=== PATIENT | female | born 1980 | race American Indian/Alaskan Native ===

== ENCOUNTER → 2018-03-01 09:10 | Outpatient (CLI) | payer MEDICAID, SELFPAY ==
--- NOTE | 2018-03-01 | DI.US.S_ITS ---
PROCEDURE: US THYROID INDICATIONS: 37 year-old female with dysphagia. TECHNIQUE: Real-time scanning was performed of the thyroid gland, with image documentation. COMPARISON: None. FINDINGS: Right: Thyroid lobe measures 4.6 x 1.5 mg 6 cm, and is homogeneous in echotexture. Left: Thyroid lobe measures 3.3 x 1.0 x 1.3 cm, and is homogenous in echotexture. Isthmus: 3.0 mm thick. Nodule number: 1. Location: Right mid thyroid lobe Size: 0.6 x 0.3 x 0.3 cm. Composition: Solid Echogenicity: Hyperechoic Shape: Poor than wide. Margins: Ill-defined Echogenic foci: Macro calcification with posterior shadowing. Total points: 9 ACR TI-RADS category 5: Highly suspicious IMPRESSION: Solitary irregular 6 mm calcified right thyroid nodule demonstrates highly suspicious morphology by ultrasound criteria. ACR TI-RADS 5: annual thyroid ultrasound is warranted every year for up to 5 years, as described below. ACR TI-RADS definitions and recommendations: TI-RADS 1 (benign): 0 points. FNA not needed. TI-RADS 2 (not suspicious): 2 points. FNA not needed. TI-RADS 3 (mildly suspicious): 3 points. * FNA if 2.5 cm or larger, follow up if 1.5 cm or larger (at 1, 3, and 5 years). TI-RADS 4 (moderately suspicious): 4-6 points. * FNA if 1.5 cm or larger, follow up if 1 cm or larger (at 1, 2, 3, and 5 years). TI-RADS 5 (highly suspicious): 7 points or more. * FNA if 1 cm or larger, follow up if 0.5 cm or larger (every year for 5 years). Dictated by: Stas DAVIDSON Interpreted: Dimitris Lozada MD on 03/01/2018 at 10:50 Approved by: Noman Walter M.D. on 03/04/2018 at 10:10
[2018-03-01 11:38] LABS: Free T3, Triiodothyronine Free 3.41 pg/mL (2.77-5.27); Free T4, Direct Thyroxine 0.73 ng/dL (0.78-2.19)
[2018-03-01 11:51] LABS: Thyroid Stimulating Hormone 1.58 uIU/mL (0.47-4.68)
[2018-03-03 22:12] LABS: Urea Breath Test >18YRS Not Detected
== END ==
PROVIDERS: Family Provider Family Medicine; PCP Family Medicine; Visit Provider Family Medicine
DX: R13.10 Dysphagia, unspecified (principal); E04.9 Nontoxic goiter, unspecified; K21.9 Gastro-esophageal reflux disease without esophagitis; E04.1 Nontoxic single thyroid nodule
CPT/HCPCS: 36415; 76536; 83013; 84439; 84443; 84481

== ENCOUNTER 2018-06-20 15:47 | Emergency (ER) | payer MEDICAID, SELFPAY ==
[2018-06-20 15:49] VITALS: BP 123/86; PULSE 107; RESP 20; TEMP 36.1; O2SAT 99; BMI 28.8
--- NOTE | 2018-06-20 16:05 | ED.ALLEREA ---
HPI - Allergic Reaction <KATRINA Nick - Last Filed: 06/20/18 22:09> General Chief complaint: Allergic Reaction Stated complaint: THINKS ALLERGIC REACTION TO TORDAL Time Seen by Provider: 06/20/18 16:01 Source: patient Mode of arrival: ambulatory Limitations: no limitations History of Present Illness HPI narrative: 37-year-old female with history of migraines and anaphylaxis secondary to ibuprofen here for complaint of having anaphylactic type symptoms after given Toradol at her primary care provider earlier today. She reports feeling wheezing and tightness in her throat. She does not feel any chest pain or shortness of breath at this time. She does feel as her symptoms are worsening. She denies any other concerns or complaints at this timeframe. She normally does take an EpiPen she did not use it for her symptoms. MD complaint: allergic reaction Related Data Home Medications Medication Instructions Recorded Confirmed albuterol sulfate [Ventolin HFA] 2 puff INH Q4HP PRN #0 07/27/17 omeprazole 20 mg PO QDAY #0 07/27/17 ranitidine HCl 150 mg PO BID #0 07/27/17 venlafaxine 2 cap PO QDAY #0 07/27/17 Previous Rx's Medication Instructions Recorded epinephrine 0.3 mg IM X1 #1 syr 07/28/17 fluticasone-salmeterol [Advair 1 puff INH BIDRT #1 u 07/28/17 Diskus] prednisone 1 tab PO AMCC #10 tab 07/28/17 rizatriptan [Maxalt-[employer]ER] 5 mg PO PRN PRN #10 tab 07/28/17 tramadol 50 mg PO Q6HPP PRN #10 tab 07/28/17 prednisone 40 mg PO DAILY #8 tab 06/20/18 Allergies Allergy/AdvReac Type Severity Reaction Status Date / Time amoxicillin [AMOXICILLIN] Allergy Unknown Verified 06/20/18 16:29 hydrocodone [From VICODIN] Allergy Unknown Verified 06/20/18 16:29 ibuprofen [IBUPROFEN] Allergy Unknown wheezing, Verified 06/20/18 16:29 cough, sob sulfamethoxazole Allergy Unknown Verified 06/20/18 16:29 [From BACTRIM] trimethoprim [From BACTRIM] Allergy Unknown Verified 06/20/18 16:29 ketorolac [From Toradol] Allergy Wheezing Verified 06/20/18 16:29 latex Allergy Verified 06/20/18 16:29 Review of Systems <KATRINA Nick - Last Filed: 06/20/18 22:09> Constitutional Denies chills, Denies fever(s), Denies lethargy and Denies weakness Eyes Denies change in vision, Denies eye discharge, Denies irritation and Denies loss of vision ENT Ears, Nose, Mouth, and Throat: Denies throat swelling Comments: Fill sensation of tightness in her throat Cardiovascular Denies chest pain, Denies irregular heart rhythm, Denies lightheadedness, Denies palpitations and Denies orthopnea Respiratory Denies wheezing Comments: Wheezing Gastrointestinal Gastrointestinal: Denies abdominal pain, Denies change in bowel habits, Denies diarrhea, Denies nausea and Denies vomiting Musculoskeletal Denies back pain, Denies muscle weakness, Denies numbness and Denies tingling Neurologic Denies confusion, Denies loss of vision, Denies numbness, Denies tingling and Denies weakness Psychiatric Denies anxiety, Denies confusion, Denies depression, Denies homicidal ideation and Denies suicidal ideation Endocrine Denies palpitations Hematologic/Lymphatic Denies easy bruising Allergic/Immunologic Denies urticaria, Denies throat swelling and Denies wheezing Exam <KATRINA Nick - Last Filed: 06/20/18 22:09> Initial Vital Signs Initial Vital Signs: Vital Signs Temperature 97.0 F L 06/20/18 15:49 Pulse Rate 107 H 06/20/18 15:49 Respiratory Rate 20 06/20/18 15:49 Blood Pressure 123/86 06/20/18 15:49 Pulse Oximetry 99 06/20/18 15:49 Const General: cooperative and well developed Nutritional Appearance: well nourished Orientation: alert, awake, oriented x3 and not confused [facility] Mouth: oral mucosae normal, oropharynx normal and moist mucous membranes Eyes Conjunctivae: conjunctivae normal Sclera: sclerae normal Pupils: PERRL EOM: EOM intact bilaterally Neck Neck: normal visual inspection, trachea midline, No lymphadenopathy, No midline deformity and No JVD Lymphatic: No lymphedema Chest Chest: normal inspection of the chest Resp Effort & Inspection: normal respiratory effort, able to speak in complete sentences, no respiratory distress and no use of accessory muscles Auscultation: no rales, no rhonchi and wheezes inspiratory wheezes and upper bilaterally Other: Cardio Rate: regular rate Rhythm: regular rhythm Heart Sounds: no click, no gallops, no murmurs and no rubs Pulses: normal peripheral pulses Skin General: no rashes or lesions noted, No jaundice and No petechiae Neuro General: alert, oriented x3, gait normal and no focal motor deficits Speech: speech normal <Rhiannon Colin DO - Last Filed: 06/23/18 08:13> Initial Vital Signs Initial Vital Signs: Vital Signs Temperature 97.0 F L 06/20/18 15:49 Pulse Rate 107 H 06/20/18 15:49 Respiratory Rate 20 06/20/18 15:49 Blood Pressure 123/86 06/20/18 15:49 Pulse Oximetry 99 06/20/18 15:49 Course <KATRINA Nick - Last Filed: 06/20/18 22:09> Orders Ordered: Discontinued Medications Diphenhydramine HCl (Benadryl) 50 mg IV NOW ONE Stop: 06/20/18 16:02 Last Admin: 06/20/18 16:29 Dose: 50 mg Epinephrine HCl (Adrenalin) 0.4 mg IM NOW ONE Stop: 06/20/18 16:02 Last Admin: 06/20/18 16:29 Dose: 0.4 mg Famotidine (Pepcid) 20 mg in 50 mls @ 200 mls/hr IV NOW ONE Stop: 06/20/18 16:15 Last Infusion: 06/20/18 17:19 Dose: 0 mls/hr Admin: 06/20/18 16:29 Dose: 200 mls/hr Methylprednisolone (Solu-Medrol 125 Mg Vial) 125 mg IV NOW ONE Stop: 06/20/18 16:02 Last Admin: 06/20/18 16:30 Dose: 125 mg Vital Signs - 8 hr 06/20/18 15:49 06/20/18 16:54 06/20/18 18:37 Temperature 97.0 F L Pulse Rate 107 H 90 102 H Respiratory Rate 18 18 Blood Pressure 123/86 116/82 Blood Pressure [Right Arm] 136/86 Pulse Oximetry 99 98 100 <Rhiannon Colin DO - Last Filed: 06/23/18 08:13> Orders Ordered: Discontinued Medications Diphenhydramine HCl (Benadryl) 50 mg IV NOW ONE Stop: 06/20/18 16:02 Last Admin: 06/20/18 16:29 Dose: 50 mg Epinephrine HCl (Adrenalin) 0.4 mg IM NOW ONE Stop: 06/20/18 16:02 Last Admin: 06/20/18 16:29 Dose: 0.4 mg Famotidine (Pepcid) 20 mg in 50 mls @ 200 mls/hr IV NOW ONE Stop: 06/20/18 16:15 Last Infusion: 06/20/18 17:19 Dose: 0 mls/hr Admin: 06/20/18 16:29 Dose: 200 mls/hr Methylprednisolone (Solu-Medrol 125 Mg Vial) 125 mg IV NOW ONE Stop: 06/20/18 16:02 Last Admin: 06/20/18 16:30 Dose: 125 mg Vital Signs - 8 hr 06/20/18 15:49 06/20/18 16:54 06/20/18 18:37 Temperature 97.0 F L Pulse Rate 107 H 90 102 H Respiratory Rate 18 18 Blood Pressure 123/86 116/82 Blood Pressure [Right Arm] 136/86 Pulse Oximetry 99 98 100 MDM - Allergic Reaction <KATRINA Nick - Last Filed: 06/20/18 22:09> Lab Data Point of Care Testing Glucose POC 59 MDM Narrative Medical decision making narrative: Signs and symptoms presents as starting anaphylactic response. She was given epinephrine IM, Benadryl IV, Solu-Medrol IV and Pepcid IV. Her symptoms resolved. She states she feels much better at this time. Patient was observed for hour and half after medications and her symptoms did not return. She is given a short course of prednisone to help with any symptoms. Follow up with primary care provider in the next couple days for re-evaluation. For any worsening symptoms return to the emergency room. <Rhiannon Colin DO - Last Filed: 06/23/18 08:13> Lab Data Point of Care Testing Glucose POC 59 Discharge Plan Departure Patient Disposition: Home Clinical Impression: Allergic reaction Discharge Date/Time: 06/20/18 18:36 Interventions: ED Discharge Assessment Last Done: 06/20/18 18:37 Instructions: Anaphylaxis Activity Restrictions/Additional Instructions: After Benadryl epinephrine Pepcid and Solu-Medrol your symptoms resolved. Short course of prednisone as prescribed to help keep symptoms from returning over the next several days use as directed. Follow up with her primary care provider. For any worsening symptoms return to the emergency room. Prescriptions: New prednisone 20 mg tablet 40 mg PO DAILY Qty: 8 RF: 0 No Action ranitidine HCl 150 MG tablet 150 mg PO BID Qty: 0 RF: 0 albuterol sulfate [Ventolin HFA] 90 MCG/PUFF HFA aerosol inhaler 2 puff INH Q4HP PRNQty: 0 RF: 0 omeprazole 20 MG tablet,delayed release (DR/EC) 20 mg PO QDAY Qty: 0 RF: 0 venlafaxine 37.5 MG capsule,extended release 24hr 2 cap PO QDAY Qty: 0 RF: 0 fluticasone-salmeterol [Advair Diskus] 250 MCG/50 MCG blister with device 1 puff INH BIDRT Qty: 1 RF: 0 prednisone 20 MG tablet 1 tab PO AMCC Qty: 10 RF: 0 tramadol 50 MG tablet 50 mg PO Q6HPP PRNQty: 10 RF: 0 rizatriptan [Maxalt-BU[employer]LE [employer]ER] 5 MG tablet,disintegrating 5 mg PO PRN PRNQty: 10 RF: 0 epinephrine 0.3 MG/0.3 ML auto-injector 0.3 mg IM X1 Qty: 1 RF: 0 Referrals: Saranya Hannon MD [Primary Care Provider] - <Rhiannon Colin DO - Last Filed: 06/23/18 08:13> Cosign ED Attending Cosignature Attestation: I was immediately available in the department for consultation. This documentation has been reviewed and I agree with assessment and plan. Supervised by Rhiannon Colin DO
[2018-06-20] MEDS: EPINEPHrine 1 MG/ML AMPUL 0.4 MG IM (16:29)
[2018-06-20] MEDS: FAMOTIDINE 20 MG/50 ML PIGGYBACK 200 MG IV (16:29)
[2018-06-20] MEDS: diphenhydrAMINE 50 MG/ML VIAL IV (16:29)
[2018-06-20] MEDS: methylPREDNISolone 125 MG/2 ML VIAL IV (16:30)
[2018-06-20 16:54] VITALS: BP 136/86; PULSE 90; RESP 18; O2SAT 98
[2018-06-20 18:37] VITALS: BP 116/82; PULSE 102; RESP 18; O2SAT 100
== END 2018-06-20 18:36 | disposition home or self-care (01) ==
PROVIDERS: Emergency Provider Nurse Practitioner Family; Family Provider Family Medicine; PCP Family Medicine
DX: T78.40XA Allergy, unspecified, initial encounter (principal); R06.2 Wheezing; R06.89 Other abnormalities of breathing
CPT/HCPCS: 82962; 96365; 96375; 99283; 99284; J0171; J1200; J2930

== ENCOUNTER 2019-03-02 22:03 | Emergency (ER) | payer MEDICAID, SELFPAY ==
--- NOTE | 2019-03-02 22:11 | ED.HA ---
HPI - Headache General Chief Complaint: Headache Stated Complaint: States Migraine Time Seen by Provider: 03/02/19 22:04 Source: patient and family Mode of arrival: ambulatory Limitations: no limitations History of Present Illness HPI Narrative: 38 yr old female never smoker with history of migraines presents with migraine that started at 10:00 a.m. yesterday morning and has gradually worsened. It is typical for her migraines and that is frontal 9/10, worse with bright lights and loud noises. She normally would take Maxalt which worked quite well for her but she is out of her prescription. She denies any recent injuries nor fever or chills. She denies blurred vision, trouble with speech nor numbness, tingling or weakness MD Complaint: migraine Onset (ago): day(s) Onset description: gradual Location: frontal Severity: similar to previous episodes Severity scale (1-10): 9 Quality: aching, throbbing and similar to previous headaches Relieving factors: dark room Exacerbating factors: exertion and light Associated symptoms: nausea Treatments prior to arrival: none Related Data Home Medications Medication Instructions Recorded Confirmed albuterol sulfate [Ventolin HFA] 2 puff INH Q4HP PRN #0 07/27/17 omeprazole 20 mg PO QDAY #0 07/27/17 ranitidine HCl 150 mg PO BID #0 07/27/17 venlafaxine 2 cap PO QDAY #0 07/27/17 Previous Rx's Medication Instructions Recorded epinephrine 0.3 mg IM X1 #1 syr 07/28/17 fluticasone propion-salmeterol 1 puff INH BIDRT #1 u 07/28/17 [Advair Diskus] prednisone 1 tab PO AMCC #10 tab 07/28/17 rizatriptan [Maxalt-PATIENT FINANCIAL SPECIALIST] 5 mg PO PRN PRN #10 tab 07/28/17 tramadol 50 mg PO Q6HPP PRN #10 tab 07/28/17 prednisone 40 mg PO DAILY #8 tab 06/20/18 Allergies Allergy/AdvReac Type Severity Reaction Status Date / Time amoxicillin [AMOXICILLIN] Allergy Unknown Verified 06/20/18 16:29 hydrocodone [From VICODIN] Allergy Unknown Verified 06/20/18 16:29 ibuprofen [IBUPROFEN] Allergy Unknown wheezing, Verified 06/20/18 16:29 cough, sob sulfamethoxazole Allergy Unknown Verified 06/20/18 16:29 [From BACTRIM] trimethoprim [From BACTRIM] Allergy Unknown Verified 06/20/18 16:29 ketorolac [From Toradol] Allergy Wheezing Verified 06/20/18 16:29 latex Allergy Verified 06/20/18 16:29 Review of Systems Constitutional Denies chills, Denies fever(s), Reports headache(s), Denies lethargy and Denies weakness Eyes Denies change in vision, Denies eye discharge, Denies irritation and Denies loss of vision ENT Ears, Nose, Mouth, and Throat: Denies change in voice, Reports headache(s), Denies neck pain and Denies sore throat Cardiovascular Denies chest pain, Denies irregular heart rhythm, Denies lightheadedness, Denies palpitations, Denies dyspnea, Denies dyspnea on exertion and Denies orthopnea Respiratory Denies cough, Denies dyspnea, Denies dyspnea on exertion and Denies wheezing Gastrointestinal Gastrointestinal: Denies abdominal pain, Denies change in bowel habits, Denies diarrhea, Reports nausea and Denies vomiting Genitourinary Denies hematuria, Denies flank pain, Denies urinary incontinence and Denies urinary urgency Musculoskeletal Denies neck pain Integumentary/Breasts Denies pruritus, Denies erythema, Denies rash and Denies wounds Neurologic Denies confusion, Reports headache(s), Denies loss of vision and Denies weakness Psychiatric Denies anxiety, Denies confusion, Denies depression, Denies homicidal ideation and Denies suicidal ideation Endocrine Denies palpitations Hematologic/Lymphatic Denies easy bruising Allergic/Immunologic Denies wheezing [facility] Social History Smoking Status: Never smoker Social History Smoking Status: Never smoker Exam Initial Vital Signs Initial Vital Signs: Vital Signs Temperature 97.7 F 03/02/19 22:18 Pulse Rate 88 03/02/19 22:18 Respiratory Rate 20 03/02/19 22:18 Blood Pressure 121/87 03/02/19 22:18 Pulse Oximetry 99 03/02/19 22:18 Const General: cooperative and well developed Nutritional Appearance: well nourished Orientation: alert, awake, oriented x3 and not confused HENMT Head: normocephalic and atraumatic Ears: external ears normal and TM's normal bilaterally Nose: external nose normal and No nasal discharge Face and sinus: sinuses nontender, face symmetric, no sinus tenderness and No dry mucous membranes Mouth: oral mucosae normal and moist mucous membranes Teeth and gingiva: dentition normal Throat: tonsils normal and uvula midline Eyes General: appearance normal, both eyes and all related structures Eyelids: eyelids normal Conjunctivae: conjunctivae normal Sclera: sclerae normal Pupils: PERRL EOM: EOM intact bilaterally Neck Neck: normal visual inspection, trachea midline, No lymphadenopathy, No midline deformity and No JVD Lymphatic: No lymphedema Chest Chest: normal inspection of the chest Resp Effort & Inspection: normal respiratory effort, able to speak in complete sentences, no respiratory distress and no use of accessory muscles Auscultation: clear to auscultation bilaterally, no rales, no rhonchi and no wheezes Cardio Rate: regular rate Rhythm: regular rhythm Heart Sounds: no click, no gallops, no murmurs and no rubs Pulses: normal peripheral pulses GI Inspection: non-distended Palpation: soft, no hepatosplenomegaly, No guarding, No pulsatile mass and No tender Auscultation: normal bowel sounds Back/Spine/Pelvis Back: No CVA tenderness Cervical Spine: cervical ROM normal and No pain with cervical ROM Thoracic/Lumbar Spine: thoracic and lumbar spine normal to inspection Skin General: no rashes or lesions noted, No jaundice and No petechiae Neuro General: alert, oriented x3, gait normal and no focal motor deficits Speech: speech normal Extrem General: full ROM, no clubbing, cyanosis or edema, no pedal edema and no calf tenderness Psych Appearance: well kempt Mental Status: mental status grossly normal Attitude: cooperative Thought Content: normal and suicidality Judgment: judgment good Course Orders Ordered: Discontinued Medications Dexamethasone (Decadron) 10 mg IV NOW ONE Stop: 03/02/19 22:50 Last Admin: 03/02/19 23:22 Dose: 10 mg Diphenhydramine HCl (Benadryl) 25 mg IV NOW ONE Stop: 03/02/19 22:50 Last Admin: 03/02/19 23:21 Dose: 25 mg Sodium Chloride (Normal Saline 0.9%) 1,000 mls @ 1,000 mls/hr IV BOLUS ONE Stop: 03/02/19 23:48 Last Infusion: 03/03/19 00:23 Dose: 0 mls/hr Admin: 03/02/19 23:22 Dose: 1,000 mls/hr Metoclopramide HCl (Reglan) 10 mg IV NOW ONE Stop: 03/02/19 22:50 Last Admin: 03/02/19 23:22 Dose: 10 mg Reevaluation(s) Reevaluation #1: Patient has marked improvement with above-stated therapies Vital Signs - 8 hr 03/02/19 22:18 Temperature 97.7 F Pulse Rate 88 Respiratory Rate 20 Blood Pressure 121/87 Pulse Oximetry 99 MDM - Headache MDM Narrative Medical decision making narrative: Multiple etiologies for patient's symptoms considered including: [Migraine headache versus a nonspecific headache versus subarachnoid hemorrhage versus other] Patient's symptoms improved or duration of stay with above-stated therapies. Findings and discharge diagnosis discussed with patient/family followed by verbalization of understanding Return precautions discussed with patient/family whom verbalize understanding. Discharge Plan Departure Patient Disposition: Home Clinical Impression: Migraine Qualifiers: Migraine type: unspecified Status migrainosus presence: without status migrainosus Intractability: not intractable Qualified Code(s): G43.909 - Migraine, unspecified, not intractable, without status migrainosus Discharge Date/Time: 03/03/19 00:25 Instructions: DI for Migraine, DI for Headache Activity Restrictions/Additional Instructions: *You have been diagnosed with [acute migraine headache] *What to do: *Take medications as directed *Follow up with your primary care provider in 2-3 days, call for an appointment. Let them know you were seen in the Emergency Department and that we ask that you be seen in follow up *Return to ER if you should have any new, worsening or concerning symptoms Prescriptions: No Action ranitidine HCl 150 MG tablet 150 mg PO BID Qty: 0 RF: 0 albuterol sulfate [Ventolin HFA] 90 MCG/PUFF HFA aerosol inhaler 2 puff INH Q4HP PRNQty: 0 RF: 0 omeprazole 20 MG tablet,delayed release (DR/EC) 20 mg PO QDAY Qty: 0 RF: 0 venlafaxine 37.5 MG capsule,extended release 24hr 2 cap PO QDAY Qty: 0 RF: 0 fluticasone propion-salmeterol [Advair Diskus] 250 MCG/50 MCG blister with device 1 puff INH BIDRT Qty: 1 RF: 0 prednisone 20 MG tablet 1 tab PO AMCC Qty: 10 RF: 0 tramadol 50 MG tablet 50 mg PO Q6HPP PRNQty: 10 RF: 0 rizatriptan [Maxalt-PATIENT FINANCIAL SPECIALIST] 5 MG tablet,disintegrating 5 mg PO PRN PRNQty: 10 RF: 0 epinephrine 0.3 MG/0.3 ML auto-injector 0.3 mg IM X1 Qty: 1 RF: 0 prednisone 20 mg tablet 40 mg PO DAILY Qty: 8 RF: 0 Referrals: Saranya Hannon MD [Primary Care Provider] - Flo Lopez MD [Physician] -
[2019-03-02 22:18] VITALS: BP 121/87; PULSE 88; RESP 20; TEMP 36.5; O2SAT 99
[2019-03-02] MEDS: diphenhydrAMINE 50 MG/ML VIAL 25 MG IV (23:21)
[2019-03-02] MEDS: METOCLOPRAMIDE 10 MG/2 ML INJ IV (23:22)
[2019-03-02] MEDS: DEXAMETHASONE 10 MG/ML VIAL IV (23:22)
[2019-03-02] MEDS: SODIUM CHLORIDE 0.9% 1,000 ML 1000 ML IV (23:22)
[2019-03-03 00:23] VITALS: BP 128/83; PULSE 100; RESP 16; TEMP 36.7; O2SAT 97
== END 2019-03-03 00:25 | disposition home or self-care (01) ==
PROVIDERS: Emergency Provider Emergency Medicine; Family Provider Family Medicine; PCP Family Medicine
DX: G43.909 Migraine, unspecified, not intractable, without status migrainosus (principal)
CPT/HCPCS: 96361; 96374; 96375; 99283; 99284; J1100; J1200; J2765

== ENCOUNTER → 2019-03-18 15:08 | Outpatient (CLI) | payer MEDICAID, SELFPAY ==
--- NOTE | 2019-03-18 | DI.US.S_ITS ---
PROCEDURE: US PELVIC COMPLETE INDICATIONS: PELVIC PAIN TECHNIQUE: Real-time scanning was performed of the pelvic organs, with image documentation. Additional endovaginal scanning was declined. COMPARISON: None. FINDINGS: Transabdominal scanning: Limited scanning through the kidneys shows no hydronephrosis. No pathologic free abdominal or pelvic fluid. Endovaginal scanning: Uterus: Uterus is normal in size at 8.6 x 3.6 x 4.6 cm. The endometrium measures 9 mm in combined thickness. There is suggestion of a septate appearance of the uterus. Ovaries: Right ovary measures 5.1 x 2.4 x 2.9 cm. Complex 3.1 x 2.1 x 2.1 cm heterogeneous complex cystic lesion with internal echoes although no definite internal vascularity. This could potentially represent involuting physiologic or hemorrhagic cyst. Left ovary measures 2.8 x 1.5 x 1.5 cm and is unremarkable IMPRESSION: Incidentally noted septate appearance of the uterus. Right ovarian complex cystic lesion, nonspecific although could be followed up with repeat ultrasound in 6 weeks to document resolution. No acute process seen. Dictated by: Cali Wilkins M.D. on 03/18/2019 at 16:21 Approved by: Cali Wilkins M.D. on 03/18/2019 at 16:24
== END ==
PROVIDERS: Family Provider Family Medicine; PCP Family Medicine; Visit Provider Physician Assistant
DX: R10.2 Pelvic and perineal pain (principal); N83.291 Other ovarian cyst, right side
CPT/HCPCS: 76856

== ENCOUNTER 2019-05-13 12:38 | Day surgery (SDC) | payer MEDICAID, SELFPAY ==
[2019-05-13] VITALS (10 sets, daily range): BP systolic 103–123; BP diastolic 70–85; PULSE 75–100; RESP 10–20; TEMP 36.7–37.3; O2SAT 97–99; BMI 30.9
[2019-05-13] MEDS: SODIUM CHLORIDE 0.9% 1,000 ML 200 ML IV (13:15)
--- NOTE | 2019-05-13 13:19 | SUR.PREOP ---
Patient arrived, states that she is anxious, verbalized that she wishes that her dad was here (he left - He has things to do.). Facial grimace, denies pain. C/O feeling short of breath, lungs clear, no resp. effort visable. Difficulty staying awake through admission process. Reported vomiting, having difficulty keep the prep down. Denies any current nausea. Alert and oriented, cooperative. Resting on her side with eyes closed.
--- NOTE | 2019-05-13 14:47 | P.HP_ITS ---
History of Present Illness Date Patient Seen: 05/13/19 Time Patient Seen: 14:47 Chief complaint: [id number] Narrative: Patient unchanged from recent clinic note Plan to do diagnostic colonoscopy with likely banding of right posterior internal hemorrhoid Patient History Medical History (Updated 05/13/19 @ 13:09 by Tracy Hess RN) Anxiety (Acute) Depression (Acute) GERD (gastroesophageal reflux disease) (Acute) History of UTI (Acute) History of migraine (Acute) Asthma (Chronic) Social History (Updated 03/31/19 @ 15:18 by Nava Zamorano RN) household members: significant other and family occupational status: employed Smoking Status: Never smoker alcohol intake: current substance use type: does not use Family & Social History Social History: household members significant other,family Tobacco & Substance use: Smoking Status Never smoker alcohol intake current alcohol intake frequency holiday/special occasion Substance Use Type does not use Meds Home Medications Medication Instructions Recorded Confirmed Type albuterol sulfate [Ventolin HFA] 2 puff INH Q4HP PRN #0 07/27/17 05/13/19 History omeprazole 20 mg PO QDAY #0 07/27/17 05/13/19 History ranitidine HCl 150 mg PO BID #0 07/27/17 05/13/19 History fluticasone propion-salmeterol 1 puff INH BIDRT #1 u 07/28/17 05/13/19 Rx [Advair Diskus] rizatriptan [Maxalt-PATIENT TRANSPORTATION DRIVER] 5 mg PO PRN PRN #10 tab 07/28/17 05/13/19 Rx loratadine 10 mg capsule 10 mg PO DAILY 03/31/19 05/13/19 History epinephrine 0.3 mg IM X1 PRN 05/13/19 05/13/19 History Allergies Allergy/AdvReac Type Severity Reaction Status Date / Time acetaminophen Allergy Severe Anaphylaxis Verified 05/13/19 13:16 ibuprofen [IBUPROFEN] Allergy Severe Anaphylaxis Verified 05/13/19 13:16 amoxicillin [AMOXICILLIN] Allergy Intermediate Hives Verified 05/13/19 13:11 ketorolac [From Toradol] Allergy Mild Wheezing Verified 05/13/19 13:11 latex Allergy Mild Rash Verified 05/13/19 13:11 sulfamethoxazole Allergy Unknown Unknown Verified 05/13/19 13:11 [From BACTRIM] trimethoprim [From BACTRIM] Allergy Unknown Unknown Verified 05/13/19 13:11 hydrocodone [From VICODIN] AdvReac Unknown Nausea & Verified 05/13/19 13:11 Vomiting OTC Pain Meds Allergy Severe Anaphylaxis Uncoded 05/13/19 13:16 Exam Vital Signs (past 8 hours): - 05/13/19 13:03 Temperature 99.1 F Pulse Rate 86 Respiratory Rate 20 Blood Pressure 108/73 Pulse Oximetry 99 Oxygen Delivery Method Room Air
[2019-05-13] MEDS: GLUCAGON,HUMAN RECOMBINANT 1 MG/ML VIAL IV (16:05)
[2019-05-13] MEDS: MIDAZOLAM 5 MG/5 ML VIAL IV (16:06)
[2019-05-13] MEDS: fentaNYL 250 MCG/5 ML INJ IV (16:07)
--- NOTE | 2019-05-13 16:33 | P.OP.ENDO_ITS ---
Operative Date/Time/Diagnoses Date of procedure: 05/13/19 Time of procedure: 16:30 Pre-op diagnosis: Rectal bleed Post-op diagnosis: same Procedure & Clinicians Study performed: Screening colonoscopy-complete Anoscopy Same procedure as scheduled: Yes Indications: 38-year-old woman presents to clinic with rectal bleeding, she had a difficult anoscopy in clinic related to discomfort. Was thought she potentially had a right posterior internal hemorrhoid Surgeon: Alirio Blackman Procedure Notes SCOAP/Timeout: Completed Procedure in detail: Patient was brought to the endoscopy suite a time-out was completed. Over the entire course of her procedure she had 6 mg of midazolam and 175 mcg of fentanyl. A digital rectal exam was performed without incident. 160 cm colonoscope was advanced through the folds of the rectum and colon without much difficulty until the cecum was encountered. The cecum was identified via a appendiceal orifice, a notable ileocecal valve. The scope was then slowly withdrawn inspecting the mucosal surfaces, there were no mucosal abnormalities identified. Within the distal rectum the scope was retroflexed there were no lesions. Notably no internal hemorrhoid was identified Prep was excellent Colonoscope was then fully withdrawn A lighted anoscope was then introduced into the anus and all 3 hemorrhoidal columns were carefully inspected. Again no internal hemorrhoids were ident ified. Patient did have a right posterior external hemorrhoid. The mucosa over this was somewhat friable. This appeared to be the most likely cause of the patient's bleeding. Scope withdrawal time: 10 minutes Sedation minutes: 33 Findings: other findings Specimen(s): none sent Impression: 1. Normal screening colonoscopy 2. Right posterior external hemorrhoid Recommendations: Other recommendation (52 years old) Plan for aftercare: PACU then home Follow up: as needed Disposition: PACU
== END 2019-05-13 17:45 | disposition home or self-care (01) ==
PROVIDERS: Family Provider Family Medicine; PCP Family Medicine; Visit Provider Surgery
PROC: 0DJD8ZZ Inspection of Lower Intestinal Tract, Via Natural or Artificial Opening Endoscopic (ICD-10-PCS; CPT 45378; principal; 2019-05-13 13:45)
DX: K62.5 Hemorrhage of anus and rectum (principal); K64.4 Residual hemorrhoidal skin tags; F32.9 Major depressive disorder, single episode, unspecified; F41.9 Anxiety disorder, unspecified; K21.9 Gastro-esophageal reflux disease without esophagitis; J45.909 Unspecified asthma, uncomplicated
CPT/HCPCS: 45378; 99152; 99153; J1610; J2250; J3010

== ENCOUNTER → 2020-03-02 12:13 | Outpatient (CLI) | payer MEDICAID, SELFPAY ==
[2020-03-03 15:22] LABS: COVID19 Sendout NOT DETECTED (Not Detect)
== END ==
PROVIDERS: Family Provider Family Medicine; PCP Family Medicine; Visit Provider Registered Nurse
DX: Z01.812 Encounter for preprocedural laboratory examination (principal)
CPT/HCPCS: 87635

== ENCOUNTER → 2020-03-04 12:26 | Outpatient (CLI) | payer MEDICAID, SELFPAY | PROVIDERS: Family Provider Family Medicine; PCP Family Medicine; Referring Provider Surgery; Visit Provider Surgery | DX: R13.10 Dysphagia, unspecified (principal); Z53.9 Procedure and treatment not carried out, unspecified reason ==

== ENCOUNTER → 2020-03-05 10:54 | Outpatient (CLI) | payer MEDICAID, SELFPAY ==
--- NOTE | 2020-03-05 | DI.RAD.S_ITS ---
PROCEDURE: FL UPPER GI W AIR INDICATIONS: Dysphagia, unspecified COMPARISON: None. FINDINGS: KUB: Preprocedural ludlow machine operator film demonstrates a normal bowel gas pattern. No suspicious abdominal calcifications. Visualized solid organ contours appear normal. Bony structures appear unremarkable. Esophagus: Esophageal mucosa is normal on air-contrast views. On single-contrast views, there is normal esophageal peristalsis. No strictures, extrinsic mass effects, or diverticula. No hiatal hernia or elicited gastroesophageal reflux. Stomach: The stomach is normally distensible, with normal rugal fold thickness. No mucosal masses or ulcers. Pylorus and duodenal bulb appear normal in morphology. Duodenal folds are normal in thickness as well. IMPRESSION: Normal examination, source of current symptoms is not seen. Dictated by: Isael Chanel M.D. on 03/05/2020 at 11:57 Approved by: Isael Chanel M.D. on 03/05/2020 at 11:57
== END ==
PROVIDERS: Family Provider Family Medicine; PCP Family Medicine; Referring Provider Surgery; Visit Provider Surgery
DX: R13.10 Dysphagia, unspecified (principal)
CPT/HCPCS: 74240

== ENCOUNTER → 2020-03-06 11:05 | Outpatient (CLI) | payer MEDICAID, SELFPAY ==
[2020-03-07 07:39] LABS: COVID19 Sendout Not Detected (Not Detect)
== END ==
PROVIDERS: Family Provider Family Medicine; PCP Family Medicine; Visit Provider Physician Assistant
DX: Z01.818 Encounter for other preprocedural examination (principal)
CPT/HCPCS: 87635

== ENCOUNTER 2020-03-09 12:35 | Day surgery (SDC) | payer MEDICAID, SELFPAY ==
[2020-03-09] VITALS (7 sets, daily range): BP systolic 108–125; BP diastolic 76–86; PULSE 71–87; RESP 12–20; TEMP 36.3–37.1; O2SAT 97–100; BMI 30.9
--- NOTE | 2020-03-09 | PATH_ITS ---
[facility] Accession Number: [id number] . 01 Material submitted: . PART A: duodenum - DUODENUM PART B: gastrointestinal site - ANTRUM PART C: esophagus - DISTAL ESOPHAGUS . 01 Diagnosis: A. Duodenum, Biopsy: Duodenal mucosa with no diagnostic abnormality. Negative for active inflammation, features of sprue, dysplasia, or malignancy. . B. Antrum, Biopsy: Gastric antral mucosa with mild chronic inflammation. Negative for Helicobacter organisms by immunohistochemistry. Negative for intestinal metaplasia. Negative for dysplasia or malignancy. . C. Distal Esophagus, Biopsies: Proximal gastric-type mucosa with mild chronic inflammation. Negative for specialized intestinal metaplasia on alcian blue stain. Negative for dysplasia or malignancy. [facility] 03/11/2020 1301 Local . 01 Electronically signed: . Jalen Kevin MD, PhD, Pathologist NPI- [id number] . 01 Gross description: . Part A: DUODENUM: Received in formalin is 1 fragment(s) of hooks, soft tissue measuring 0.2 x 0.2 x 0.2 cm submitted entirely in 1 cassette(s) Part B: ANTRUM: Received in formalin is 1 fragment(s) of hooks, soft tissue measuring 0.3 x 0.2 x 0.2 cm submitted entirely in 1 cassette(s) Part C: DISTAL ESOPHAGUS: Received in formalin are 2 fragment(s) of hooks, soft tissue measuring 0.1 x 0.1 x 0.1 cm to 0.2 x 0.2 x 0.2 cm submitted entirely in 1 cassette(s) /MICHI 03/09/2020 2114 Local . 01 Microscopic: . B. An immunohistochemical stain was performed to evaluate for Helicobacter organisms and is negative. The control stain showed appropriate reactivity. . C. An alcian blue stain is performed to evaluate for specialized intestinal metaplasia, and is negative for goblet cells. A control stain shows appropriate reactivity. . * This test was developed and its performance characteristics determined by [employer]. It has not been cleared or approved by the U.S. Food and Drug Administration. The FDA has determined that such clearance or approval is not necessary. This test is used for clinical purposes. It should not be regarded as investigational or for research. . 01 Pathologist provided ICD-10: R13.10, K29.70, K20.9 . 01 CPT . 223508, 709436, 812564, N32392, 485883 Performed at: 01 [facility] [address] [address], [place], [place] [id number] MD Tone Thomas MD Phone: [phone]
[2020-03-09] MEDS: SODIUM CHLORIDE 0.9% 1,000 ML 200 ML IV (12:59)
--- NOTE | 2020-03-09 13:39 | PM.PREOP ---
Pre-operative Note COVID-19 COVID-19 status: Negative Result date/Date tested (Pos, Neg/Pending): 03/06/20 Interval Note History & Physical reviewed/Exam performed by Physician: Yes Changes to H&P: No ASA Class (for procedural sedation): I
--- NOTE | 2020-03-09 14:04 | P.OP.ENDO_ITS ---
Operative Date/Time/Diagnoses Date of procedure: 03/09/20 Time of procedure: 14:04 Pre-op diagnosis: Dysphagia Post-op diagnosis: same Procedure & Clinicians Study performed: EGD with cold forceps biopsies Same procedure as scheduled: Yes Indications: Dysphagia Surgeon: Katelyn Kramer Procedure Notes SCOAP/Timeout: Performed Procedure in detail: The patient was brought to the room and placed in left lateral decubitus position with all bony prominences padded. A bite block was positioned in the patient's mouth to protect the lips, teeth, and tongue for the procedure. A time-out was performed and then the patient was given procedural sedation starting with 2 mg of Versed and 100 mcg of fentanyl. A total of 7 mg of Versed and 100 micro g of fentanyl were given for the entire procedure. Vitals were monitored throughout the procedure and remained stable. Once adequately sedated, the procedure was begun. The lubricated gastroscope was passed through the bite block and across the tongue and into the esophagus w ithout incident. A tubular view of the esophagus was maintained as the scope was advanced through the esophagus and into the stomach. The scope was advanced through the stomach and to the pylorus. The scope was gently popped through the pylorus and into the duodenal bulb. The scope was flexed and advanced into the second and third portions of the duodenum. The duodenum and duodenal bulb appeared normal. Biopsies were taken. The scope was withdrawn into the stomach. The stomach had mild endoscopic gastritis. Biopsies were taken. Small scattered polyps were seen consistent with being on PPI medication. The scope was retroflexed and the gastric cardia was examined. In the hiatus a Hill grade 2-3 hiatal hernia was seen with 2-3 cm of gaping around the gastroscope. The scope was then straightened, and withdrawn into the esophagus. There was a 2-3 cm hiatal hernia. The Z-line was irregular with a 1-2 cm time of salmon mucosa coming up into the esophagus. Biopsies were taken. The mid and upper esophagus were intact and normal, there was 1 inlet patch in the upper esophagus. The scope was then withdrawn through the esophagus with a tubular view. The scope was then withdrawn from the patient the procedure was concluded. The patient tolerated the procedure well and was transferred to the PACU in stable condition. Sedation minutes: 17 Findings: Snow's esophagus, gastritis and hiatal hernia Specimen(s): other (Biopsies of duodenum, stomach, distal esophagus) Post-procedure Recommendations: Other recommendation (Continue PPI, follow-up for discussion of biopsy results next steps) Follow up: weeks (Two weeks) Disposition: PACU
[2020-03-09] MEDS: MIDAZOLAM 5 MG/5 ML VIAL IV (14:08)
[2020-03-09] MEDS: fentaNYL 250 MCG/5 ML INJ IV (14:08)
[2020-03-09] MEDS: LIDOCAINE 4% SOLN 50 ML 20 ML TOP (14:09)
[2020-03-09] MEDS: MIDAZOLAM 2 MG/2 ML VIAL IV (14:09)
--- NOTE | 2020-03-09 15:19 | SUR.PHASEII ---
Called pt's sister Aerial and gave her discharge instructions. Also handed pt's sister d/c instructions. pt d/markus with sister.
== END 2020-03-09 15:00 | disposition home or self-care (01) ==
PROVIDERS: Family Provider Family Medicine; PCP Family Medicine; Referring Provider Surgery; Visit Provider Surgery
PROC: 0DJ08ZZ Inspection of Upper Intestinal Tract, Via Natural or Artificial Opening Endoscopic (ICD-10-PCS; CPT 43235; principal; 2020-03-09 13:45)
DX: K22.70 Barrett's esophagus without dysplasia (principal); F41.9 Anxiety disorder, unspecified; F32.9 Major depressive disorder, single episode, unspecified; J45.909 Unspecified asthma, uncomplicated; K29.70 Gastritis, unspecified, without bleeding; K44.9 Diaphragmatic hernia without obstruction or gangrene; K21.0 Gastro-esophageal reflux disease with esophagitis
CPT/HCPCS: 43239; 99152; J2250; J3010

== ENCOUNTER → 2020-04-12 10:25 | Outpatient (CLI) | payer MEDICAID, SELFPAY ==
--- NOTE | 2020-04-12 | DI.US.S_ITS ---
PROCEDURE: US THYROID INDICATIONS: THYROID NODULE TECHNIQUE: Real-time scanning was performed of the thyroid gland, with image documentation. COMPARISON: [facility] Ul[facility]ound, US, US THYROID, 09/19/2018, 11:03. [facility], US, US THYROID, 03/01/2018, 9:44. FINDINGS: Right: Thyroid lobe measures 5.1 x 1.4 x 1.3 cm, and is mildly heterogeneous in echotexture. Left: Thyroid lobe measures 3.6 x 0.9 x 1.1 cm, and is homogenous in echotexture. Isthmus: 1.6 mm thick. IMPRESSION: Mildly heterogeneous mid aspect of the right thyroid gland; otherwise no focal nodule seen. Dictated by: Stas DAVIDSON Interpreted: Jim Olivarez MD on 04/12/2020 at 12:42 Approved by: Jim Olivarez M.D. on 04/12/2020 at 13:39
== END ==
PROVIDERS: Family Provider Family Medicine; PCP Family Medicine; Referring Provider Family Medicine; Visit Provider Family Medicine
DX: E04.1 Nontoxic single thyroid nodule (principal)
CPT/HCPCS: 76536

== ENCOUNTER 2021-02-17 06:17 | Emergency (ER) | payer MEDICAID, SELFPAY ==
--- NOTE | 2021-02-17 06:20 | ED.GENADULT ---
HPI - General Adult <Myra Jiménez MD - Last Filed: 02/20/21 18:15> General Chief complaint: Shortness of Breath/Dyspnea Stated complaint: Shortness of Breath all night, can't catch breathe Time Seen by Provider: 02/17/21 06:20 History of Present Illness HPI narrative: 40-year-old woman with a history of seasonal allergies, reflux, migraine and mild asthma for which she uses 2 puffs of albuterol b.i.d. presents with 2-3 weeks of increasing dyspnea dramatically worse over the last 24 hours with difficulty sleeping last night because she was so short of breath. She she notes exertional dyspnea but has never tried using albuterol prior to activity. She has been prescribed an Advair Diskus but has not been using it as she felt that it did not make much difference for her. She does not describe palpitations but does describe tightness through her entire chest that isn't overtly pain. No fevers, vomiting, abdominal pain, diarrhea. No headache and no acute neurologic findings. Related Data Home Medications Medication Instructions Recorded Confirmed albuterol sulfate [Ventolin HFA] 2 puff INH Q4HP PRN #0 07/27/17 04/01/20 omeprazole 20 mg PO QDAY #0 07/27/17 04/01/20 loratadine 10 mg capsule 10 mg PO DAILY 03/31/19 04/01/20 epinephrine 0.3 mg IM X1 PRN 05/13/19 04/01/20 Previous Rx's Medication Instructions Recorded fluticasone propion-salmeterol 1 puff INH BIDRT #1 u 07/28/17 [Advair Diskus] rizatriptan [Maxalt-REJOGGER] 5 mg PO PRN PRN #10 tab 07/28/17 albuterol sulfate 2 puff INHALATION Q4-6H PRN #8.5 02/17/21 gram prednisone 40 mg PO DAILY #10 tab 02/17/21 Allergies Allergy/AdvReac Type Severity Reaction Status Date / Time acetaminophen Allergy Severe Anaphylaxis Verified 02/17/21 06:27 ibuprofen [IBUPROFEN] Allergy Severe Anaphylaxis Verified 02/17/21 06:27 amoxicillin [AMOXICILLIN] Allergy Intermediate Hives Verified 02/17/21 06:27 ketorolac [From Toradol] Allergy Mild Wheezing Verified 02/17/21 06:27 latex Allergy Mild Rash Verified 02/17/21 06:27 sulfamethoxazole Allergy Unknown Unknown Verified 02/17/21 06:27 [From BACTRIM] trimethoprim [From BACTRIM] Allergy Unknown Unknown Verified 02/17/21 06:27 hydrocodone [From VICODIN] AdvReac Unknown Nausea & Verified 02/17/21 06:27 Vomiting OTC Pain Meds Allergy Severe Anaphylaxis Uncoded 02/17/21 06:27 Review of Systems <yMra Jiménez MD - Last Filed: 02/20/21 18:15> Review of Systems Narrative: Remainder of complete review of systems is otherwise unremarkable except for that included in the HPI. Patient History <Myra Jiménez MD - Last Filed: 02/20/21 18:15> Medical History (Updated 02/17/21 @ 08:17 by Juany Nielsen DO) Anxiety Asthma Depression GERD (gastroesophageal reflux disease) History of migraine History of UTI Social History household members: significant other and family occupational status: employed Smoking Status: Never smoker alcohol intake: current substance use type: does not use Smoking Status: Never smoker alcohol intake frequency: holidays/special occasions only Substance Use Type: does not use Exam <Myra Jiménez MD - Last Filed: 02/20/21 18:15> Narrative Exam Narrative: General: Fatigued appearing but in no acute distress. Able to give a complete and coherent history. Well-nourished well-developed HEENT: Moist mucous membranes, normal sclera with reactive pupils, Neck: No JVD, supple Respiratory: Lungs minor scattered wheezing in upper lung novak but no rales no rhonchi. Full and symmetrical air movement Cardiac: Regular rate and rhythm no murmurs no bruits Abdomen: Soft, nontender, good bowel tones, no flank pain Skin: Warm and dry, no rashes Neurologic: Grossly neurologically intact with no obvious asymmetries or abnormalities Extremities: No trauma, well perfused Psych: Cooperative, appropriate insight and affect Initial Vital Signs Initial Vital Signs: Vital Signs Temperature 97.4 F L 02/17/21 06:27 Pulse Rate 94 H 02/17/21 06:27 Respiratory Rate 22 02/17/21 06:27 Blood Pressure 119/83 02/17/21 06:27 Pulse Oximetry 94 02/17/21 06:27 <Juany Nielsen DO - Last Filed: 02/17/21 09:33> Initial Vital Signs Initial Vital Signs: Vital Signs Temperature 97.4 F L 02/17/21 06:27 Pulse Rate 94 H 02/17/21 06:27 Respiratory Rate 22 02/17/21 06:27 Blood Pressure 119/83 02/17/21 06:27 Pulse Oximetry 94 02/17/21 06:27 Course <Myra Jiménez MD - Last Filed: 02/20/21 18:15> Orders Ordered: Discontinued Medications Albuterol (Albuterol 2.5 Mg/3 Ml Neb (Adult)) 2.5 mg INH NOW ONE Stop: 02/17/21 06:58 Last Admin: 02/17/21 07:18 Dose: 2.5 mg Documented by: Methylprednisolone (Methylprednisolone 125 Mg/2 Ml Vial) 125 mg IV NOW ONE Stop: 02/17/21 07:05 Last Admin: 02/17/21 07:13 Dose: 125 mg Documented by: Vital Signs Vital signs: Vital Signs - 8 hr 02/17/21 06:27 02/17/21 06:34 02/17/21 07:00 Temperature 97.4 F L Pulse Rate 94 H 87 80 Respiratory Rate 22 Blood Pressure 119/83 Pulse Oximetry 94 99 100 02/17/21 07:19 02/17/21 07:30 02/17/21 08:00 Temperature Pulse Rate 82 92 H 80 Respiratory Rate 18 Blood Pressure Pulse Oximetry 100 100 99 <Juany Nielsen DO - Last Filed: 02/17/21 09:33> Orders Ordered: Discontinued Medications Albuterol (Albuterol 2.5 Mg/3 Ml Neb (Adult)) 2.5 mg INH NOW ONE Stop: 02/17/21 06:58 Last Admin: 02/17/21 07:18 Dose: 2.5 mg Documented by: Methylprednisolone (Methylprednisolone 125 Mg/2 Ml Vial) 125 mg IV NOW ONE Stop: 02/17/21 07:05 Last Admin: 02/17/21 07:13 Dose: 125 mg Documented by: Vital Signs Vital signs: Vital Signs - 8 hr 02/17/21 06:27 02/17/21 06:34 02/17/21 07:00 Temperature 97.4 F L Pulse Rate 94 H 87 80 Respiratory Rate 22 Blood Pressure 119/83 Pulse Oximetry 94 99 100 02/17/21 07:19 02/17/21 07:30 02/17/21 08:00 Temperature Pulse Rate 82 92 H 80 Respiratory Rate 18 Blood Pressure Pulse Oximetry 100 100 99 Medical Decision Making <Myra Jiménez MD - Last Filed: 02/20/21 18:15> Lab Data Result diagrams: 02/17/21 06:55 02/17/21 06:55 Labs: Lab Results 02/17/21 02/17/21 02/17/21 Range/Units 06:25 06:55 06:55 WBC 6.8 (4.5-11.0) X10^3/uL RBC 4.28 (4.0-5.2) X10^6/uL Hgb 13.6 (12.0-16.0) g/dL Hct 40.3 (36-46) % MCV 94.3 (80-100) fL MCH 31.7 (26-34) PG MCHC 33.6 (30-36) % RDW 12.1 (11.6-14.8) % Plt Count 188 (150-400) X10^3/uL Neut % (Auto) 46.5 L (50-75) % Lymph % (Auto) 43.3 H (25-40) % [place] % (Auto) 6.3 (3-14) % Eos % (Auto) 3.3 (2-4) % Baso % (Auto) 0.6 (0-2) % Neut # (Auto) 3200 (3886-5767) /uL Lymph # (Auto) 2900 (2406-4111) /uL [place] # (Auto) 400 (0-900) /uL Eos # (Auto) 200 (0-450) /uL Baso # (Auto) 0 (0-100) /uL D-Dimer < 200 (<230) ng/mL Sodium (137-145) mmol/L Potassium (3.4-5.1) mmol/L Chloride (98-107) mmol/L Carbon Dioxide (22-32) mmol/L BUN (7-17) mg/dL Creatinine (0.52-1.04) mg/dL Estimated GFR (>60) mL/min BUN/Creatinine Ratio (6-22) Glucose (70-100) mg/dL Calcium (8.4-10.2) mg/dL Total Bilirubin (0.2-1.3) mg/dL AST (14-36) IU/L ALT (<35) IU/L Alkaline Phosphatase (38-126) U/L Troponin I (0.01-0.034) ng/mL Total Protein (6.3-8.2) g/dL Albumin (3.5-5.0) g/dL Globulin (1.7-4.1) g/dL Albumin/Globulin Ratio (1.0-2.8) SARS-CoV-2 (PCR) Negative (Negative) 02/17/21 Range/Units 06:55 WBC (4.5-11.0) X10^3/uL RBC (4.0-5.2) X10^6/uL Hgb (12.0-16.0) g/dL Hct (36-46) % MCV (80-100) fL MCH (26-34) PG MCHC (30-36) % RDW (11.6-14.8) % Plt Count (150-400) X10^3/uL Neut % (Auto) (50-75) % Lymph % (Auto) (25-40) % [place] % (Auto) (3-14) % Eos % (Auto) (2-4) % Baso % (Auto) (0-2) % Neut # (Auto) (7349-8385) /uL Lymph # (Auto) (0921-2198) /uL [place] # (Auto) (0-900) /uL Eos # (Auto) (0-450) /uL Baso # (Auto) (0-100) /uL D-Dimer (<230) ng/mL Sodium 137 (137-145) mmol/L Potassium 3.9 (3.4-5.1) mmol/L Chloride 106 (98-107) mmol/L Carbon Dioxide 25 (22-32) mmol/L BUN 10 (7-17) mg/dL Creatinine 0.69 (0.52-1.04) mg/dL Estimated GFR > 60.0 (>60) mL/min BUN/Creatinine Ratio 14.5 (6-22) Glucose 100 (70-100) mg/dL Calcium 9.7 (8.4-10.2) mg/dL Total Bilirubin 0.2 (0.2-1.3) mg/dL AST 21 (14-36) IU/L ALT 12 (<35) IU/L Alkaline Phosphatase 73 (38-126) U/L Troponin I < 0.012 (0.01-0.034) ng/mL Total Protein 7.2 (6.3-8.2) g/dL Albumin 4.2 (3.5-5.0) g/dL Globulin 3.0 (1.7-4.1) g/dL Albumin/Globulin Ratio 1.4 (1.0-2.8) SARS-CoV-2 (PCR) (Negative) <Juany Nielsen, DO - Last Filed: 02/17/21 09:33> Lab Data Labs: Lab Results 02/17/21 02/17/21 02/17/21 Range/Units 06:25 06:55 06:55 WBC 6.8 (4.5-11.0) X10^3/uL RBC 4.28 (4.0-5.2) X10^6/uL Hgb 13.6 (12.0-16.0) g/dL Hct 40.3 (36-46) % MCV 94.3 (80-100) fL MCH 31.7 (26-34) PG MCHC 33.6 (30-36) % RDW 12.1 (11.6-14.8) % Plt Count 188 (150-400) X10^3/uL Neut % (Auto) 46.5 L (50-75) % Lymph % (Auto) 43.3 H (25-40) % [place] % (Auto) 6.3 (3-14) % Eos % (Auto) 3.3 (2-4) % Baso % (Auto) 0.6 (0-2) % Neut # (Auto) 3200 (9611-6475) /uL Lymph # (Auto) 2900 (3084-4334) /uL [place] # (Auto) 400 (0-900) /uL Eos # (Auto) 200 (0-450) /uL Baso # (Auto) 0 (0-100) /uL D-Dimer < 200 (<230) ng/mL Sodium (137-145) mmol/L Potassium (3.4-5.1) mmol/L Chloride (98-107) mmol/L Carbon Dioxide (22-32) mmol/L BUN (7-17) mg/dL Creatinine (0.52-1.04) mg/dL Estimated GFR (>60) mL/min BUN/Creatinine Ratio (6-22) Glucose (70-100) mg/dL Calcium (8.4-10.2) mg/dL Total Bilirubin (0.2-1.3) mg/dL AST (14-36) IU/L ALT (<35) IU/L Alkaline Phosphatase (38-126) U/L Troponin I (0.01-0.034) ng/mL Total Protein (6.3-8.2) g/dL Albumin (3.5-5.0) g/dL Globulin (1.7-4.1) g/dL Albumin/Globulin Ratio (1.0-2.8) SARS-CoV-2 (PCR) Negative (Negative) 02/17/21 Range/Units 06:55 WBC (4.5-11.0) X10^3/uL RBC (4.0-5.2) X10^6/uL Hgb (12.0-16.0) g/dL Hct (36-46) % MCV (80-100) fL MCH (26-34) PG MCHC (30-36) % RDW (11.6-14.8) % Plt Count (150-400) X10^3/uL Neut % (Auto) (50-75) % Lymph % (Auto) (25-40) % [place] % (Auto) (3-14) % Eos % (Auto) (2-4) % Baso % (Auto) (0-2) % Neut # (Auto) (5025-3457) /uL Lymph # (Auto) (5729-6849) /uL [place] # (Auto) (0-900) /uL Eos # (Auto) (0-450) /uL Baso # (Auto) (0-100) /uL D-Dimer (<230) ng/mL Sodium 137 (137-145) mmol/L Potassium 3.9 (3.4-5.1) mmol/L Chloride 106 (98-107) mmol/L Carbon Dioxide 25 (22-32) mmol/L BUN 10 (7-17) mg/dL Creatinine 0.69 (0.52-1.04) mg/dL Estimated GFR > 60.0 (>60) mL/min BUN/Creatinine Ratio 14.5 (6-22) Glucose 100 (70-100) mg/dL Calcium 9.7 (8.4-10.2) mg/dL Total Bilirubin 0.2 (0.2-1.3) mg/dL AST 21 (14-36) IU/L ALT 12 (<35) IU/L Alkaline Phosphatase 73 (38-126) U/L Troponin I < 0.012 (0.01-0.034) ng/mL Total Protein 7.2 (6.3-8.2) g/dL Albumin 4.2 (3.5-5.0) g/dL Globulin 3.0 (1.7-4.1) g/dL Albumin/Globulin Ratio 1.4 (1.0-2.8) SARS-CoV-2 (PCR) (Negative) Imaging Data Chest x-ray: Radiologist's Impression: PROCEDURE: XR CHEST 1V INDICATIONS: dyspnea TECHNIQUE: One view of the chest was acquired. COMPARISON: [facility], CHEST 1 VIEW, 07/27/2017, 14:22. FINDINGS: Surgical changes and devices: None. Lungs and pleura: Lungs are clear. No pleural effusions or pneumothorax. Mediastinum: Mediastinal contours appear normal. Heart size is normal. Bones and chest wall: No suspicious bony lesions. Overlying soft tissues appear unremarkable. IMPRESSION: No acute disease. Dictated by: Cali Wilkins M.D. on 02/17/2021 at 9:00 ECG Data Attestation: I personally reviewed and interpreted this ECG as follows: Interpretation: Normal sinus rhythm rate 83 p.r. interval 124 QRS [address] changes MDM Narrative Medical decision making narrative: I received sign-out from night order selector provider as evaluated patient myself. She has a history of asthma she quit taking her Advair and started using her albuterol more frequently. She says she has had increasing shortness of breath ongoing the last few weeks but last night she was unable to sleep. She has a dry nonproductive cough. She denies any fever. Shortness of breath is not any worse with exertion or rest she says it is constant. She is not hypoxic. No known COVID exposure that she knows. Patient is feeling mildly better after albuterol. X-ray is clear blood work is overall reassuring D-dimer is negative she is low risk for a PE. At this time I recommend she restart taking Advair in start a short course of prednisone. Discharge Plan Departure Patient Disposition: Home Clinical Impression: Asthma Qualifiers: Asthma severity: mild Asthma persistence: persistent Asthma complication type: with acute exacerbation Qualified Code(s): J45.31 - Mild persistent asthma with (acute) exacerbation Instructions: DI for Asthma -- Adult Activity Restrictions/Additional Instructions: *You have been diagnosed with acute asthma exacerbation *What to do: At this time it does not appear that you need antibiotics. Please resume taking her Advair as previously prescribed this will help keep your not under control. You may feel like you are having palpitations by heart is not skipping a beat in the emergency department. *Continue to take medications as directed--> [facility] Prednisone 40 mg once a day for 5 days start tomorrow Albuterol 1-2 puffs every 4 hours hernia pain or shortness of breath Advair once daily as prescribed *Follow up with your primary care provider in 2-3 days *Return to ER if you should have increasing shortness of breath, fever, chest pain or any new, worsening or concerning symptoms Prescriptions: New prednisone 20 mg tablet 40 mg PO DAILY Qty: 10 RF: 0 albuterol sulfate 90 mcg/actuation HFA aerosol inhaler 2 puff INHALATION Q4-6H PRN (Reason: shortness of breath or wheezing) Qty: 8.5 RF: 0 No Action albuterol sulfate [Ventolin HFA] 90 MCG/PUFF HFA aerosol inhaler 2 puff INH Q4HP PRN (Reason: Wheezing) Qty: 0 RF: 0 omeprazole 20 MG tablet,delayed release (DR/EC) 20 mg PO QDAY Qty: 0 RF: 0 fluticasone propion-salmeterol [Advair Diskus] 250 MCG/50 MCG blister with device 1 puff INH BIDRT Qty: 1 RF: 0 rizatriptan [Maxalt-REJOGGER] 5 MG tablet,disintegrating 5 mg PO PRN PRNQty: 10 RF: 0 loratadine 10 mg capsule 10 mg PO DAILY RF: 0 epinephrine 0.3 MG/0.3 ML auto-injector 0.3 mg IM X1 PRN (Reason: Allergic Reaction) RF: 0 Referrals: Saranya Hannon MD [Primary Care Provider] -
[2021-02-17 06:27] VITALS: BP 119/83; PULSE 94; RESP 22; TEMP 36.3; O2SAT 94; BMI 27.4
[2021-02-17 06:34] VITALS: PULSE 87; O2SAT 99
--- NOTE | 2021-02-17 06:41 | DI.RAD.S_ITS ---
PROCEDURE: XR CHEST 1V INDICATIONS: dyspnea TECHNIQUE: One view of the chest was acquired. COMPARISON: [facility], , CHEST 1 VIEW, 07/27/2017, 14:22. FINDINGS: Surgical changes and devices: None. Lungs and pleura: Lungs are clear. No pleural effusions or pneumothorax. Mediastinum: Mediastinal contours appear normal. Heart size is normal. Bones and chest wall: No suspicious bony lesions. Overlying soft tissues appear unremarkable. IMPRESSION: No acute disease. Dictated by: Cali Wilkins M.D. on 02/17/2021 at 9:00 Approved by: Cali Wilkins M.D. on 02/17/2021 at 9:00
[2021-02-17 06:48] LABS: COVID19 -Nasal RAPID Negative (Negative)
[2021-02-17 07:00] VITALS: PULSE 80; O2SAT 100
[2021-02-17 07:02] LABS: Add Manual Diff / Slide Review NO; Basophils Absolute Auto 0 /uL (0-100); Basophils Percent Auto 0.6 % (0-2); Eosinophils Absolute Auto 200 /uL (0-450); Eosinophils Percent Auto 3.3 % (2-4); Hematocrit 40.3 % (36-46); Hemoglobin 13.6 g/dL (12.0-16.0); Lymphocytes Absolute Auto 2900 /uL (1100-4500); Lymphocytes Percent Auto 43.3 % (25-40); Mean Corpuscular HGB Conc 33.6 % (30-36); Mean Corpuscular Hemoglobin 31.7 PG (26-34); Mean Corpuscular Volume 94.3 fL (80-100); Monocytes Absolute Auto 400 /uL (0-900); Monocytes Percent Auto 6.3 % (3-14); Neutrophils Absolute Auto 3200 /uL (1500-7000); Neutrophils Percent Auto 46.5 % (50-75); Platelet Count 188 X10^3/uL (150-400); Red Blood Cell Count 4.28 X10^6/uL (4.0-5.2); Red Cell Distribution Width 12.1 % (11.6-14.8); White Blood Cell Count 6.8 X10^3/uL (4.5-11.0)
[2021-02-17 07:13] LABS: D Dimer < 200 ng/mL (<230)
[2021-02-17] MEDS: methylPREDNISolone 125 MG/2 ML VIAL IV (07:13)
[2021-02-17 07:15] LABS: Alanine Aminotransferase 12 IU/L (<35); Albumin 4.2 g/dL (3.5-5.0); Albumin Globulin Ratio 1.4 (1.0-2.8); Alkaline Phosphatase 73 U/L (38-126); Aspartate Aminotransferase 21 IU/L (14-36); BUN Creatinine Ratio 14.5 (6-22); Bilirubin Total 0.2 mg/dL (0.2-1.3); Blood Urea Nitrogen 10 mg/dL (7-17); Calcium 9.7 mg/dL (8.4-10.2); Carbon Dioxide 25 mmol/L (22-32); Chloride 106 mmol/L (98-107); Estimated Glomerular Filt Rate > 60.0 mL/min (>60); Glucose 100 mg/dL (70-100); HEMOLYSIS < 15 (0-50); Potassium 3.9 mmol/L (3.4-5.1); Sodium 137 mmol/L (137-145); Total Protein 7.2 g/dL (6.3-8.2)
[2021-02-17] MEDS: ALBUTEROL 2.5 MG/3 ML NEB (ADULT) INH (07:18)
[2021-02-17 07:19] VITALS: PULSE 82; RESP 18; O2SAT 100
--- NOTE | 2021-02-17 07:24 | RT ---
Pt krystal tx well, no distress noted and pt on room air. Peak flows done pre/post ok effort noted
[2021-02-17 07:26] LABS: Troponin I < 0.012 ng/mL (0.01-0.034)
[2021-02-17 07:30] VITALS: PULSE 92; O2SAT 100
[2021-02-17 08:00] VITALS: PULSE 80; O2SAT 99
--- NOTE | 2021-02-17 08:41 | PC.NURSE ---
RT provided spacer teaching
== END 2021-02-17 08:42 | disposition home or self-care (01) ==
PROVIDERS: Emergency Medicine; Emergency Provider Emergency Medicine; Family Provider Family Medicine; PCP Family Medicine
DX: J45.31 Mild persistent asthma with (acute) exacerbation (principal); R07.9 Chest pain, unspecified; Z20.822 Contact with and (suspected) exposure to COVID-19
CPT/HCPCS: 36415; 71045; 80053; 84484; 85025; 85379; 87635; 93005; 93010; 94150; 94640; 96374; 99284; C9803; J2930; J7613

== ENCOUNTER → 2021-03-22 14:44 | Outpatient (CLI) | payer MEDICAID, SELFPAY | PROVIDERS: Family Provider Family Medicine; PCP Nurse Practitioner Family; Visit Provider Nurse Practitioner Family | DX: N89.8 Other specified noninflammatory disorders of vagina (principal) | CPT/HCPCS: 87210 ==

== ENCOUNTER 2022-12-12 21:31 | Emergency (ER) | payer MEDICAID, SELFPAY ==
[2022-12-12 21:46] VITALS: BP 115/83; PULSE 91; RESP 22; TEMP 37.4; O2SAT 100; BMI 32.5
[2022-12-13] VITALS (22 sets, daily range): BP systolic 104–158; BP diastolic 61–97; PULSE 61–84; O2SAT 97–100
--- NOTE | 2022-12-13 03:14 | ED.HA ---
HPI - Headache General Chief Complaint: Headache Stated Complaint: headache, vomiting Time Seen by Provider: 12/13/22 03:14 Mode of arrival: Wheelchair History of Present Illness HPI Narrative: Patient is a 42-year-old female history of migraines presenting today with 2 days of headache. She did take rizatriptan at home without any relief. She feels like this is a little atypical from her migraine it is in her neck going up over her head. She is sensitive to light. She has vomited a couple of times. She overall feels like she can not get comfortable. She denies any fever or chills. No neck pain. Related Data Home Medications Medication Instructions Recorded Confirmed omeprazole 20 mg tablet,delayed 20 mg PO QDAY ##0 07/27/17 03/22/21 release loratadine 10 mg capsule 10 mg PO DAILY 03/31/19 03/22/21 epinephrine 0.3 mg/0.3 mL 0.3 mg IM X1 PRN Allergic Reaction 05/13/19 03/22/21 injection, auto-injector Previous Rx's Medication Instructions Recorded fluticasone 250 mcg-salmeterol 50 1 puff INH BIDRT ##1 07/28/17 mcg/dose blistr powdr for inhalation (Advair Diskus) rizatriptan 5 mg disintegrating 5 mg PO PRN PRN #10 tabs 07/28/17 tablet (Maxalt-AEGIS CONSOLE OPERATOR TRACK) albuterol sulfate 90 mcg/actuation 2 puff inhalation Q4HP PRN 03/10/21 aerosol inhaler (Ventolin HFA) Wheezing #8.5 grams Allergies Allergy/AdvReac Type Severity Reaction Status Date / Time acetaminophen Allergy Severe Anaphylaxis Verified 03/22/21 14:20 ibuprofen [IBUPROFEN] Allergy Severe Anaphylaxis Verified 03/22/21 14:20 amoxicillin [AMOXICILLIN] Allergy Intermediate Hives Verified 03/22/21 14:20 ketorolac [From Toradol] Allergy Mild Wheezing Verified 03/22/21 14:20 latex Allergy Mild Rash Verified 03/22/21 14:20 sulfamethoxazole Allergy Unknown Unknown Verified 03/22/21 14:20 [From BACTRIM] trimethoprim [From BACTRIM] Allergy Unknown Unknown Verified 03/22/21 14:20 venlafaxine AdvReac Severe severe Verified 03/22/21 14:20 withdrawal syndrome paroxetine [From Paxil] AdvReac Intermediate flat affect Verified 03/22/21 14:20 hydrocodone [From VICODIN] AdvReac Unknown Nausea & Verified 03/22/21 14:20 Vomiting OTC Pain Meds Allergy Severe Anaphylaxis Uncoded 03/22/21 14:20 Review of Systems Review of Systems ROS Unobtainable: All systems reviewed & are unremarkable except as noted in HPI and below Patient History Medical History Anxiety Asthma Depression Encounter for routine gynecological examination (03/22/21) Encounter for wellness examination in adult (03/22/21) GERD (gastroesophageal reflux disease) History of migraine History of UTI Social History household members: significant other and family occupational status: employed Smoking Status: Never smoker alcohol intake: current substance use type: does not use Smoking Status: Never smoker alcohol intake frequency: holidays/special occasions only Substance Use Type: does not use Exam Initial Vital Signs Initial Vital Signs: Vital Signs Temperature 99.3 F 12/12/22 21:46 Pulse Rate 91 H 12/12/22 21:46 Respiratory Rate 22 12/12/22 21:46 Blood Pressure 115/83 12/12/22 21:46 Pulse Oximetry 100 12/12/22 21:46 Oxygen Delivery Method Room Air 12/12/22 21:46 GENERAL: All her 42-year-old female appears very uncomfortable HEENT: Head atraumatic,EOMI, pupils reactive, face symmetric, moist mucous membranes NECK: Supple no meningeal signs CARDIOVASCULAR: Regular rate and rhythm without murmurs, rubs or gallops. RESPIRATORY: Breath sounds equal bilaterally, no wheezes rales or rhonchi. ABDOMEN: Soft, nontender. Normoactive bowel sounds all 4 quadrants. No guarding or rebound. EXTREMITIES: Normal range of motion, no clubbing or edema. Neurovascularly intact NEUROLOGICAL: Alert and oriented x4.Normal gait and speech. Cranial nerves II through XII grossly intact. SKIN: Warm, dry, no laceration, no petechiae, no rashes or lesions. Course Orders Ordered: Discontinued Medications Dexamethasone (Dexamethasone 10 Mg/Ml Vial) 10 mg IV NOW ONE Stop: 12/13/22 03:20 Last Admin: 12/13/22 03:43 Dose: 10 mg Documented By: GIOVANNI Diphenhydramine HCl (Diphenhydramine 50 Mg/Ml Vial) 25 mg IV NOW ONE Stop: 12/13/22 03:20 Last Admin: 12/13/22 03:43 Dose: 25 mg Documented By: GIOVANNI Sodium Chloride (Normal Saline 0.9%) 1,000 mls @ 1,000 mls/hr IV BOLUS ONE Stop: 12/13/22 04:18 Last Infusion: 12/13/22 04:36 Dose: 0 mls/hr Documented By: Admin: 12/13/22 03:42 Dose: 1,000 mls/hr Documented By: GIOVANNI Metoclopramide HCl (Metoclopramide 10 Mg/2 Ml Inj) 10 mg IV NOW ONE Stop: 12/13/22 03:20 Last Admin: 12/13/22 03:43 Dose: 10 mg Documented By: GIOVANNI Vital Signs Vital signs: Vital Signs - 8 hr 12/13/22 00:05 12/13/22 00:05 12/13/22 00:15 Pulse Rate 77 Blood Pressure 133/97 H 128/90 Pulse Oximetry 99 12/13/22 00:15 12/13/22 00:30 12/13/22 00:30 Pulse Rate 82 78 Blood Pressure 115/83 Pulse Oximetry 97 98 12/13/22 00:45 12/13/22 00:45 12/13/22 01:00 Pulse Rate 83 Blood Pressure 125/70 125/76 Pulse Oximetry 98 12/13/22 01:00 12/13/22 01:15 12/13/22 01:15 Pulse Rate 65 69 Blood Pressure 116/70 Pulse Oximetry 97 98 12/13/22 01:30 12/13/22 01:30 12/13/22 01:46 Pulse Rate 63 Blood Pressure 119/75 123/72 Pulse Oximetry 97 12/13/22 01:46 12/13/22 02:00 12/13/22 02:01 Pulse Rate 68 67 Blood Pressure 114/62 Pulse Oximetry 97 97 12/13/22 02:01 12/13/22 02:16 12/13/22 02:16 Pulse Rate 77 73 Blood Pressure 110/66 Pulse Oximetry 97 97 12/13/22 02:30 12/13/22 02:30 12/13/22 02:45 Pulse Rate 61 Blood Pressure 114/73 121/78 Pulse Oximetry 98 12/13/22 02:45 12/13/22 03:00 12/13/22 03:00 Pulse Rate 81 68 Blood Pressure 104/71 Pulse Oximetry 99 97 12/13/22 03:15 12/13/22 03:15 12/13/22 03:30 Pulse Rate 64 Blood Pressure 104/61 148/87 H Pulse Oximetry 97 12/13/22 03:30 12/13/22 03:45 12/13/22 03:45 Pulse Rate 76 70 Blood Pressure 135/78 Pulse Oximetry 100 99 12/13/22 04:00 12/13/22 04:00 12/13/22 04:15 Pulse Rate 68 Blood Pressure 121/75 158/92 H Pulse Oximetry 100 12/13/22 04:15 12/13/22 04:30 12/13/22 04:30 Pulse Rate 74 77 Blood Pressure 125/71 Pulse Oximetry 100 100 12/13/22 04:45 12/13/22 04:45 12/13/22 05:00 Pulse Rate 83 Blood Pressure 119/69 117/67 Pulse Oximetry 100 12/13/22 05:00 Pulse Rate 84 Blood Pressure Pulse Oximetry 99 MDM - Headache MDM Narrative Medical decision making narrative: Patient is a 42-year-old female with history of migraine headaches presenting today with headache ongoing for last 2 days. She is unable to have NSAIDs secondary to allergy. She is given the previous concoction which she had here during her last migraine. She has no fever she has no neck pain no suspicion for meningitis. She is no focal deficits at this time I do not see need for head CT. Her headache has improved with the concussion she would like to go home. At this time I think this is reasonable. No need for further workup. History of migraine headaches symptoms are consistent with a migraine headache Discharge Plan Departure Patient Disposition: Home Clinical Impression: Migraine Instructions: DI for Migraine Activity Restrictions/Additional Instructions: *You have been diagnosed with migraine headaches *What to do: At this time please go home and rest stay hydrated hope you feel better soon *Continue to take medications as directed *Follow up with your primary care provider in 2-3 days or call [phone] *Return to ER if you should have worsening headache fever numbness tingling weakness speech difficulty persistent vomiting [or] any new, worsening or concerning symptoms Prescriptions: No Action omeprazole 20 MG tablet,delayed release (DR/EC) 20 mg PO QDAY Qty: 0 fluticasone propion-salmeterol [Advair Diskus] 250 MCG/50 MCG blister with device 1 puff INH BIDRT Qty: 1 0RF rizatriptan [Maxalt-AEGIS CONSOLE OPERATOR TRACK] 5 MG tablet,disintegrating 5 mg PO PRN PRNQty: 10 0RF albuterol sulfate [Ventolin HFA] 90 mcg/actuation HFA aerosol inhaler 2 puff inhalation Q4HP PRN (Reason: Wheezing) Qty: 8.5 0RF loratadine 10 mg capsule 10 mg PO DAILY epinephrine 0.3 MG/0.3 ML auto-injector 0.3 mg IM X1 PRN (Reason: Allergic Reaction) Patient Comments: hasn't needed Referrals: Donna Costa ARNP [Primary Care Provider] - Stand Alone Forms: Patient Portal/API
[2022-12-13] MEDS: SODIUM CHLORIDE 0.9% 1,000 ML 1000 ML IV (03:42)
[2022-12-13] MEDS: METOCLOPRAMIDE 10 MG/2 ML INJ IV (03:43)
[2022-12-13] MEDS: diphenhydrAMINE 50 MG/ML VIAL 25 MG IV (03:43)
[2022-12-13] MEDS: DEXAMETHASONE 10 MG/ML VIAL IV (03:43)
== END 2022-12-13 05:15 | disposition home or self-care (01) ==
PROVIDERS: Emergency Provider Emergency Medicine; Family Provider Family Medicine; PCP Nurse Practitioner Family
DX: G43.909 Migraine, unspecified, not intractable, without status migrainosus (principal)
CPT/HCPCS: 36415; 96361; 96374; 96375; 99284; J1100; J1200; J2765

== ENCOUNTER 2023-06-15 19:43 | Emergency (ER) | payer MEDICAID, SELFPAY ==
[2023-06-15 19:58] VITALS: BP 125/74; PULSE 102; RESP 18; TEMP 37.2; O2SAT 97; BMI 31.4
--- NOTE | 2023-06-15 19:59 | ED.GENADULT ---
HPI - General Adult General Chief complaint: Upper Respiratory Symptoms Stated complaint: covid Time Seen by Provider: 06/15/23 19:46 History of Present Illness HPI narrative: 42-year-old female nonsmoker with history of asthma, anxiety presents here with her sister, both of which were diagnosed with COVID yesterday. She has had some low-grade fever, mild headache and nausea as well as low back pain. She denies any trauma or injury. She denies any trouble with bowel or bladder control and has no lower extremity numbness, tingling or weakness. She does not take blood thinners. She states when she moves her back pain is worse when she sits still it improves. She has severe reactions to acetaminophen and the NSAIDs. She tried CBD topical at home with minimal relief Related Data Home Medications Medication Instructions Recorded Confirmed omeprazole 20 mg tablet,delayed 20 mg PO QDAY ##0 07/27/17 03/22/21 release loratadine 10 mg capsule 10 mg PO DAILY 03/31/19 03/22/21 epinephrine 0.3 mg/0.3 mL 0.3 mg IM X1 PRN Allergic Reaction 05/13/19 03/22/21 injection, auto-injector Previous Rx's Medication Instructions Recorded fluticasone 250 mcg-salmeterol 50 1 puff INH BIDRT ##1 07/28/17 mcg/dose blistr powdr for inhalation (Advair Diskus) rizatriptan 5 mg disintegrating 5 mg PO PRN PRN #10 tabs 07/28/17 tablet (Maxalt-FRONT OFFICE CLERK) albuterol sulfate 90 mcg/actuation 2 puff inhalation Q4HP PRN 03/10/21 aerosol inhaler (Ventolin HFA) Wheezing #8.5 grams diazepam 2 mg tablet (Valium) 2 mg PO BID-TID PRN muscle spasm 06/15/23 #10 tabs Allergies Allergy/AdvReac Type Severity Reaction Status Date / Time acetaminophen Allergy Severe Anaphylaxis Verified 03/22/21 14:20 ibuprofen [IBUPROFEN] Allergy Severe Anaphylaxis Verified 03/22/21 14:20 amoxicillin [AMOXICILLIN] Allergy Intermediate Hives Verified 03/22/21 14:20 ketorolac [From Toradol] Allergy Mild Wheezing Verified 03/22/21 14:20 latex Allergy Mild Rash Verified 03/22/21 14:20 sulfamethoxazole Allergy Unknown Unknown Verified 03/22/21 14:20 [From BACTRIM] trimethoprim [From BACTRIM] Allergy Unknown Unknown Verified 03/22/21 14:20 venlafaxine AdvReac Severe severe Verified 03/22/21 14:20 withdrawal syndrome paroxetine [From Paxil] AdvReac Intermediate flat affect Verified 03/22/21 14:20 hydrocodone [From VICODIN] AdvReac Unknown Nausea & Verified 03/22/21 14:20 Vomiting OTC Pain Meds Allergy Severe Anaphylaxis Uncoded 03/22/21 14:20 Review of Systems Review of Systems Narrative: GENERAL: See HPI HEENT: See HPI RESPIRATORY: See HPI CARDIOVASCULAR: Denies chest pain, palpitations, orthopnea, edema, GASTROINTESTINAL: Denies nausea, vomiting, abdominal pain, diarrhea, constipation, melena. : Denies dysuria, frequency, incontinence, hematuria, urinary retention. MUSCULOSKELETAL: denies weakness, joint pain, or bony pain SKIN: Denies rash, skin lesions, or other NEUROLOGIC: Denies weakness, headache, numbness, change in speech, confusion, seizures, incoordination. PSYCHIATRIC: No concerning psychosocial issues. 12 point review of systems is negative except for those stated above Patient History Medical History Anxiety Asthma Depression Encounter for routine gynecological examination (03/22/21) Encounter for wellness examination in adult (03/22/21) GERD (gastroesophageal reflux disease) History of migraine History of UTI Social History household members: significant other and family occupational status: employed Smoking Status: Never smoker alcohol intake: current substance use type: does not use Smoking Status: Never smoker alcohol intake frequency: holidays/special occasions only Substance Use Type: does not use Exam Narrative Exam Narrative: GEN: AOx3 and in mild distress, tearful and anxious NECK: No meningeal signs EYES: Pupils are equal, round, and reactive to light and accommodation. Extraoccular muscles are intact bilaterally. There is no subconjunctival hemorrhage or exudate. CHEST: Lungs are clear to auscultation bilaterally and free of wheezes, rales, or rhonchi. Heart rate is regular rhythm, there are no murmurs, clicks, rubs, or gallops. There is no chest wall tenderness. ABD: Abdomen is soft and nontender. There is no guarding or rebound. Bowel sounds are normal in all 4 quadrants. There is no mass or organomegaly. BACK: panel machine tender but free of any obvious external abnormalities. Patient exam notes decreased range of motion and muscle spasm, but no CVA tenderness, or vertebral point tenderness. There are no symptoms of cauda equina such as saddle anesthesia, and decreased reflexes, decreased sensation or strength. EXT: Full painless ROM of all extremities with no loss of sensation or strength. SKIN: Warm, pink, and dry. No erythema or rash Initial Vital Signs Initial Vital Signs: Vital Signs Temperature 98.9 F 06/15/23 19:58 Pulse Rate 102 H 06/15/23 19:58 Respiratory Rate 18 06/15/23 19:58 Blood Pressure 125/74 06/15/23 19:58 Pulse Oximetry 97 06/15/23 19:58 Oxygen Delivery Method Room Air 06/15/23 19:58 Course Orders Ordered: Discontinued Medications Diazepam (Diazepam 5 Mg Tablet) 5 mg PO NOW ONE Stop: 06/15/23 21:05 Last Admin: 06/15/23 21:41 Dose: 5 mg Documented By: GINO Sodium Chloride (Normal Saline 0.9%) 1,000 mls @ 1,000 mls/hr IV BOLUS ONE Stop: 06/15/23 20:58 Last Admin: 06/15/23 20:31 Dose: Not Given Documented By: GINO Lidocaine (Lidocaine Patch 1 Each Adh..Patch) 1 each TOP NOW ONE Stop: 06/15/23 21:05 Last Admin: 06/15/23 21:31 Dose: 1 each Documented By: GINO Metoclopramide HCl (Metoclopramide 10 Mg/2 Ml Inj) 10 mg IV NOW ONE Stop: 06/15/23 20:01 Last Admin: 06/15/23 20:31 Dose: Not Given Documented By: GINO Vital Signs Vital signs: Vital Signs - 8 hr 06/15/23 21:43 06/15/23 22:06 06/15/23 23:17 Temperature 98.5 F Pulse Rate 113 H 108 H Respiratory Rate 18 20 Blood Pressure 119/83 115/76 Pulse Oximetry 96 98 Oxygen Delivery Method Room Air Room Air Medical Decision Making Lab Data Labs: Urine Dip Bedside Urine Glucose Negative Bedside Urine Bilirubin - Negative Bedside Urine Ketone +++ 80 Urine Specific [place] 1.015 Bedside Urine Occult Blood - Negative Bedside Urine pH 6.0 Bedside Urine Protein - Negative Bedside Urine Urobilinogen - Negative Bedside Urine Nitrite - Negative Bedside Urine Leukocytes - Negative Esterase Point of care testing: Urine Dip Bedside Urine Glucose Negative Bedside Urine Bilirubin - Negative Bedside Urine Ketone +++ 80 Urine Specific [place] 1.015 Bedside Urine Occult Blood - Negative Bedside Urine pH 6.0 Bedside Urine Protein - Negative Bedside Urine Urobilinogen - Negative Bedside Urine Nitrite - Negative Bedside Urine Leukocytes - Negative Esterase MDM Narrative Medical decision making narrative: [42] year old patient presents with headache, nausea, vomiting and back pain, known COVID Multiple etiologies for patient's symptoms considered including, but not limited to: COVID versus other] Prior Charts reviewed in our EMR Primary Historian: patient Labs reviewed and interpreted by myself: No evidence of urine infection Patient's symptoms improved over duration of stay with above-stated therapies. Findings and discharge diagnosis discussed with patient/family followed by verbalization of understanding Return precautions discussed with patient/family whom verbalize understanding of diagnosis and plan Discharge Plan Departure Patient Disposition: Home Clinical Impression: COVID-19 Instructions: COVID-19 Activity Restrictions/Additional Instructions: *You have been diagnosed with [ COVID-19] *What to do: ?* per recommendations from the CDC and the [facility] Department of Health ?* stay home except to get medical care. ?Restrict activities outside your home, except for getting medical care. ?Do not go to work, school, or public areas. ?Avoid using public transportation, ride sharing, or taxis. ?* separate yourself from other people in your home. ?* call ahead before visiting your doctor ?* Wear a facemask ?* Cover your coughs and sneezes ?* Clean your hands often ?* Avoid sharing household items ?* Clean all high-touch services every day ?* Monitor your symptoms and seek prompt medical attention if your illness is worsening, particularly with difficulty in breathing. You may discontinue your isolation when: ?1. You have been fever-free for at least 24 hours without the use of fever reducing medication, AND ?2. Your symptoms are getting better, AND ?3. At least 5 days have passed since symptoms first appeared ?4. If you have fever, continue to stay home until fever resolves Individuals with laboratory confirmed COVID-19 who have not had any symptoms may discontinue home isolation when at least 5 days have passed since the date of their first COVID-19 diagnostic test and have had no subsequent illness You should notifiy any friends and family that have been in close contact *If up to date on COVID Vaccines, then they do not need to quarantine unless symptoms develop. Get tested on day 5 (or sooner if symptoms develop). Take precautions and watch for symptoms until day 10 *If NOT up to date on COVID Vaccines, then CDC recommends quarantine for at least 5 full days. Wear a well fitted mask at home if you must be around others. If they ?develop symptoms they should get tested. If they remain asymptomatic they should get tested on day 5. They should take precautions and monitor for symptoms until day 10. Prescriptions: New diazepam [Valium] 2 mg tablet 2 mg PO BID-TID PRN (Reason: muscle spasm) Qty: 10 0RF No Action omeprazole 20 MG tablet,delayed release (DR/EC) 20 mg PO QDAY Qty: 0 fluticasone propion-salmeterol [Advair Diskus] 250 MCG/50 MCG blister with device 1 puff INH BIDRT Qty: 1 0RF rizatriptan [Maxalt-FRONT OFFICE CLERK] 5 MG tablet,disintegrating 5 mg PO PRN PRNQty: 10 0RF albuterol sulfate [Ventolin HFA] 90 mcg/actuation HFA aerosol inhaler 2 puff inhalation Q4HP PRN (Reason: Wheezing) Qty: 8.5 0RF loratadine 10 mg capsule 10 mg PO DAILY epinephrine 0.3 MG/0.3 ML auto-injector 0.3 mg IM X1 PRN (Reason: Allergic Reaction) Patient Comments: hasn't needed Stand Alone Forms: Patient Portal/API
[2023-06-15 20:39] VITALS: PULSE 105; RESP 20; TEMP 37.7; O2SAT 98
[2023-06-15] MEDS: LIDOCAINE PATCH 1 EACH ADH..PATCH TOP (21:31)
[2023-06-15] MEDS: diazePAM 5 MG TABLET PO (21:41)
[2023-06-15 21:43] VITALS: BP 119/83; PULSE 113; RESP 18; O2SAT 96
[2023-06-15 22:06] VITALS: TEMP 36.9
[2023-06-15 23:17] VITALS: BP 115/76; PULSE 108; RESP 20; O2SAT 98
== END 2023-06-15 23:25 | disposition home or self-care (01) ==
PROVIDERS: Emergency Provider Emergency Medicine; Family Provider Family Medicine
DX: U07.1 COVID-19 (principal)
CPT/HCPCS: 81003; 99283